=== PATIENT | male | born 2000 | race Caucasian/White ===

== ENCOUNTER 2022-02-25 04:27 | Emergency (ER) | payer OTHER ==
[2022-02-25] MEDS: Aspirin 81 MG Tab.Chew PO ONE (04:40)
[2022-02-25] MEDS: Nitroglycerin 0.4 MG Tab.SL SL ONE (04:41)
[2022-02-25] MEDS: Ketorolac 30 MG/ML SDV IVPUSH ONE (05:04)
[2022-02-25] MEDS: GI Cocktail Oral Solution 30 ML PO ONE (05:09)
[2022-02-25] MEDS ORDERED: Ketorolac 10 MG Tab ONE ×2 (06:52→07:00)
== END 2022-02-25 07:05 | disposition home or self-care (01) ==
LOC: LB.ED 04:27
DX: R09.1 Pleurisy (principal)
CPT/HCPCS: 36415; 71045; 80053; 80307; 81001; 84484; 85025; 93005; 93010; 96374; 99283; 99285; A9270-GY; J1885

== ENCOUNTER 2022-12-28 01:34 | Emergency (ER) | payer OTHER ==
[2022-12-28] MEDS: Ketorolac 30 MG/ML SDV IVPUSH ONE (02:03)
[2022-12-28 02:09] LABS: BASOPHILS ABSOLUTE AUTO 0.02 K/uL (0.02-0.10); BASOPHILS PERCENT AUTO 0.4 % (0.0-0.5); EOSINOPHILS ABSOLUTE AUTO 0.35 K/uL (0.04-0.40); EOSINOPHILS PERCENT AUTO 6.7 % (1.0-5.0); HEMATOCRIT 39.8 % (40.0-54.0); HEMOGLOBIN 13.9 g/dL (13.0-18.0); LYMPHOCYTES ABSOLUTE AUTO 1.96 K/uL (1.50-4.00); LYMPHOCYTES PERCENT AUTO 37.3 % (20.0-40.0); MEAN CORPUSCULAR HEMOGLOBIN 28.6 pg (27.0-32.0); MEAN CORPUSCULAR HGB CONC 34.9 g/dL (31.0-35.0); MEAN CORPUSCULAR VOLUME 82 fL (76-96); MEAN PLATELET VOLUME 9.3 fL (6.0-10.0); MONOCYTES ABSOLUTE AUTO 0.43 K/uL (0.20-0.80); MONOCYTES PERCENT AUTO 8.2 % (3.0-10.0); NEUTROPHILS PERCENT AUTO 47.4 % (45.0-70.0); PLATELET COUNT,PLT 217 K/uL (150-400); RED BLOOD CELL COUNT 4.86 M/uL (4.50-6.50); RED CELL DISTRIBUTION WIDTH 12.4 % (11.0-16.0); WHITE BLOOD CELL COUNT,WBC 5.3 K/uL (4.0-11.0)
[2022-12-28 02:23] LABS: ALBUMIN 3.9 g/dL (3.4-5.0); ANION GAP 14.4 mmol/L (5.0-15.0); BILIRUBIN TOTAL 0.4 mg/dL (0.0-1.0); BUN/CREATININE RATIO 27.9 (6-25); CALCIUM 9.1 mg/dL (8.5-10.1); CARBON DIOXIDE,CO2 26.2 mmol/L (21.0-32.0); CREATININE 0.86 mg/dL (0.70-1.30); EST CRCL DRUG DOSING (CG) 135.37 mL/min; POTASSIUM,K 3.6 mmol/L (3.5-5.1); PROTEIN TOTAL,TP 7.7 g/dL (6.4-8.2)
== END 2022-12-28 02:37 | disposition home or self-care (01) ==
LOC: LB.ED 01:34
DX: R07.89 Other chest pain (principal); F17.210 Nicotine dependence, cigarettes, uncomplicated
CPT/HCPCS: 36415; 71045; 80053; 84484; 85025; 93005; 96374; 99285-25; J1885

== ENCOUNTER 2023-01-04 13:45 | Emergency (ER) | payer OTHER ==
[2023-01-04 14:22] LABS: BASOPHILS ABSOLUTE AUTO 0.02 K/uL (0.02-0.10); BASOPHILS PERCENT AUTO 0.3 % (0.0-0.5); EOSINOPHILS ABSOLUTE AUTO 0.24 K/uL (0.04-0.40); EOSINOPHILS PERCENT AUTO 3.3 % (1.0-5.0); HEMATOCRIT 43.4 % (40.0-54.0); HEMOGLOBIN 15.3 g/dL (13.0-18.0); LYMPHOCYTES ABSOLUTE AUTO 1.13 K/uL (1.50-4.00); LYMPHOCYTES PERCENT AUTO 15.4 % (20.0-40.0); MEAN CORPUSCULAR HEMOGLOBIN 28.5 pg (27.0-32.0); MEAN CORPUSCULAR HGB CONC 35.3 g/dL (31.0-35.0); MEAN CORPUSCULAR VOLUME 81 fL (76-96); MEAN PLATELET VOLUME 9.1 fL (6.0-10.0); MONOCYTES ABSOLUTE AUTO 0.51 K/uL (0.20-0.80); MONOCYTES PERCENT AUTO 6.9 % (3.0-10.0); NEUTROPHILS ABSOLUTE AUTO 5.44 K/uL (2.00-7.50); NEUTROPHILS PERCENT AUTO 74.1 % (45.0-70.0); PLATELET COUNT,PLT 249 K/uL (150-400); RED BLOOD CELL COUNT 5.36 M/uL (4.50-6.50); RED CELL DISTRIBUTION WIDTH 12.6 % (11.0-16.0); WHITE BLOOD CELL COUNT,WBC 7.3 K/uL (4.0-11.0)
== END 2023-01-04 15:30 | disposition home or self-care (01) ==
LOC: LB.ED 13:45
DX: R07.81 Pleurodynia (principal); F12.90 Cannabis use, unspecified, uncomplicated; Z79.899 Other long term (current) drug therapy; Z87.891 Personal history of nicotine dependence
CPT/HCPCS: 36415; 71046; 84484; 85025; 93005; 99285